=== PATIENT | female | born 1970 | race Caucasian/White ===

== ENCOUNTER → 2018-05-03 | Outpatient (CLI) | payer BC | LOC: MC.RAD 14:12 | DX: Z12.31 Encounter for screening mammogram for malignant neoplasm of breast (principal) ==

== ENCOUNTER → 2019-06-03 | Outpatient (CLI) | payer BC | LOC: MC.RAD 10:00 | DX: Z12.31 Encounter for screening mammogram for malignant neoplasm of breast (principal) ==

== ENCOUNTER → 2020-06-04 | Outpatient (CLI) | payer BC | LOC: MC.RAD 13:15 | DX: Z12.31 Encounter for screening mammogram for malignant neoplasm of breast (principal); N63.20 Unspecified lump in the left breast, unspecified quadrant ==

== ENCOUNTER → 2020-06-11 | Outpatient (CLI) | payer BC | LOC: MC.RAD 12:50 | DX: N60.02 Solitary cyst of left breast (principal) ==

== ENCOUNTER → 2020-12-21 | Outpatient (CLI) | payer BC | LOC: MC.RAD 12:17 | DX: N60.02 Solitary cyst of left breast (principal) ==